=== PATIENT | female | born 2000 | race Caucasian/White ===

== ENCOUNTER 2018-11-11 15:04 | Emergency (ER) | payer BC ==
[~2018-11-11] VITALS: Ht 167.6 cm; Wt 53.5 kg
[2018-11-11 15:16] VITALS: BP 93/48
--- NOTE | 2018-11-11 15:20 | NUR ---
PT BIB FRIEND TO THE ED WITH THE CHIEF C/O LEFT WRIST PAIN S/P FALL OFF FROM [employer] BOARD X TODAY. + DEFORMITY, +SENSATION, +SWELLING. REPORTS TINGLING SENSATION ON HAND. STATES PAIN OF 10/10 AT THIS TIME. DENIES ANY OTHER PROBLEM AT THIS TIME. ER AWARE.
--- NOTE | 2018-11-11 15:25 | NUR ---
X-RAY AT THE BEDSIDE.
[2018-11-11] MEDS ORDERED: MORPHINE SULFATE 4 MG/ML SYR IVP ONE (15:35)
[2018-11-11] MEDS ORDERED: ONDANSETRON 4 MG/2 ML VIAL IVP ONE (15:35)
[2018-11-11] MEDS ORDERED: KETAMINE 10 MG/ML UD SYR **ER IVP ONE (16:05)
[2018-11-11] MEDS ORDERED: NACL 0.9% 1,000 ML IV ONE (16:05)
[2018-11-11] MEDS ORDERED: fentaNYL 0.05 MG/ML VIAL IVP ONE (16:05)
--- NOTE | 2018-11-11 16:46 | NUR ---
TIME OUT DONE.
--- NOTE | 2018-11-11 16:49 | NUR ---
FENTANYL ADMINISTERED PER ORDER.
--- NOTE | 2018-11-11 16:50 | NUR ---
DR. MCDONALD ADMINISTERED KETAMINE.
--- NOTE | 2018-11-11 17:00 | NUR ---
ER MD, RT, PRIMARY NURSE AT THE BEDSIDE. PT ON O2 AT 2 LTR/MIN. NS INFUSING ON RAC. VSS. AT 1652 PROCEDURE STARTED AND ENDED AT 1657. PT ON CONTINUOUS MONITORING.
--- NOTE | 2018-11-11 17:00 | NUR ---
VOLAR SPLINT APPLIED TO LEFT WRIST, MD AND RN AT BEDSIDE
--- NOTE | 2018-11-11 17:05 | NUR ---
PT ALERT/ AWAKE, VERBAL. NO C/O PAIN. NO NAUSEA OR VOMITING NOTED.
--- NOTE | 2018-11-11 17:10 | NUR ---
PT A/O X4. VERBAL. NO N/V NOTED. VSS.
--- NOTE | 2018-11-11 17:18 | NUR ---
SEE [facility] SEDATION RECORD FOR ADDITIONAL INFORMATION.
--- NOTE | 2018-11-11 17:20 | NUR ---
GOOD PMS POST LT WRIST SPLINT.
[2018-11-11 18:03] VITALS: BP 110/78
--- NOTE | 2018-11-11 18:03 | NUR ---
Patient discharged with v/s stable. Written and verbal after care instructions given and explained. Patient alert, oriented and verbalized understanding of instructions. Ambulatory with steady gait. All questions addressed prior to discharge. ID band removed. Patient advised to follow up with PMD. Rx of PERCOCET,ZOFRAN,IBU, given. Patient educated on indication of medication including possible reaction and side effects. Opportunity to ask questions provided and answered.
== END 2018-11-11 18:03 | disposition home or self-care (01) ==
LOC: MED 15:04
DX: S52.502A Unspecified fracture of the lower end of left radius, initial encounter for closed fracture (principal); V00.131A Fall from skateboard, initial encounter; Y93.89 Activity, other specified; Y92.89 Other specified places as the place of occurrence of the external cause; Y99.8 Other external cause status
CPT/HCPCS: 25605; 73110; 96374; 96375; 99283; J2270; J2405; J3010; J7030; Q0092